=== PATIENT | male | born 1945 | race Two or more races ===

== ENCOUNTER 2024-01-08 18:12 | Inpatient (IN) | payer OTHER ==
[2024-01-08 18:34] VITALS: RESP 18; BMI 20.5
[2024-01-08 20:40] LABS: BASO % 0.8 % (0-2.0); EOS % 2.9 % (0-4.5); HEMATOCRIT 36.3 % (35.4-49); HEMOGLOBIN 12.3 GM/dL (11.7-16.9); MCH 30.8 pg (25.7-33.7); MCHC 33.8 g/dl (32.0-35.9); MEAN CELL VOLUME 91.1 fl (80-96); MEAN PLT VOLUME 8.7 fl (7.5-11.1); MONO % 9.2 % (3.8-10.2); NEUT % 73.1 % (42.8-82.8); PLATELET COUNT 333 10^3/uL (134-434); RBC 3.98 M/mm3 (4.00-5.60); RDW 16.4 % (11.9-15.9); WHITE BLOOD COUNT 7.7 K/mm3 (4.0-10.0)
[2024-01-08 20:52] LABS: INR 0.98 (0.83-1.09); PROTHROMBIN TIME (PATIENT) 11.3 SEC (9.7-13.0)
[2024-01-08 20:55] LABS: ACTIVATED PTT 30.9 SECONDS (25.2-36.5)
[2024-01-08 21:08] LABS: POTASSIUM 5.5 mmol/L (3.5-5.1)
[2024-01-08 21:09] LABS: CALCIUM 9.5 mg/dL (8.5-10.1)
[2024-01-08 21:10] LABS: BLOOD UREA NITROGEN 34.9 mg/dL (7-18)
[2024-01-08 21:13] LABS: CREATININE 1.8 mg/dL (0.55-1.3)
[2024-01-08 21:15] LABS: BILIRUBIN,TOTAL 0.4 mg/dL (0.2-1); TOT PROT 7.6 g/dl (6.4-8.2)
[2024-01-08 23:35] LABS: POTASSIUM 4.6 mmol/L (3.5-5.1)
[2024-01-08 23:37] LABS: ALBUMIN 3.8 g/dl (3.4-5.0); BLOOD UREA NITROGEN 33.6 mg/dL (7-18); CALCIUM 9.4 mg/dL (8.5-10.1)
[2024-01-08 23:41] LABS: CREATININE 1.9 mg/dL (0.55-1.3)
[2024-01-08 23:42] LABS: BILIRUBIN,TOTAL 0.3 mg/dL (0.2-1)
[2024-01-09] MEDS: SODIUM CHLORIDE 1,000 ML IV STA (00:14)
[2024-01-09] MEDS: MELATONIN 5 MG TABLETS PO ONE (04:00)
[2024-01-09 04:35] VITALS: TEMP 98.4
[2024-01-09 06:57] LABS: HEMATOCRIT 35.3 % (35.4-49); HEMOGLOBIN 11.5 GM/dL (11.7-16.9); MCH 29.8 pg (25.7-33.7); MCHC 32.7 g/dl (32.0-35.9); MEAN CELL VOLUME 91.4 fl (80-96); MEAN PLT VOLUME 9.7 fl (7.5-11.1); PLATELET COUNT 292 10^3/uL (134-434); RBC 3.87 M/mm3 (4.00-5.60); RDW 16.4 % (11.9-15.9); WHITE BLOOD COUNT 7.7 K/mm3 (4.0-10.0)
[2024-01-09 07:09] LABS: POTASSIUM 4.2 mmol/L (3.5-5.1)
[2024-01-09 07:16] LABS: ALBUMIN 3.7 g/dl (3.4-5.0); BLOOD UREA NITROGEN 26.2 mg/dL (7-18); MAGNESIUM 2.3 mg/dL (1.8-2.4)
[2024-01-09 07:18] LABS: CREATININE 1.5 mg/dL (0.55-1.3)
[2024-01-09 07:19] LABS: BILIRUBIN,TOTAL 0.1 mg/dL (0.2-1); PHOSPHOROUS 3.6 mg/dL (2.5-4.9); TOT PROT 6.9 g/dl (6.4-8.2)
[2024-01-09] MEDS: amLODIPine BESYLATE 2.5 MG TABLET (FP) PO SCH (11:54)
[2024-01-09 13:04] VITALS: BP 135/78; PULSE 70
== END 2024-01-09 13:47 | disposition home or self-care (01) | DRG 204 ==
LOC: JER 18:12 → JERBED 22:01 → OBSVTOIN 01-09 02:20 → J4W 01-09 04:37
PROVIDERS: ADMIT Internal Medicine; ATTEND Internal Medicine
DX: R55 Syncope and collapse (principal); C78.00 Secondary malignant neoplasm of unspecified lung; I10 Essential (primary) hypertension; E11.9 Type 2 diabetes mellitus without complications; C67.9 Malignant neoplasm of bladder, unspecified
CPT/HCPCS: 0241U-QW; 36415; 70450-TC; 71046-TC-FY; 71250-TC; 80053; 80061; 83036; 83735; 84100; 84436; 84443; 84484; 85025; 85027; 85610; 85730; 93005; 93010; 93306-TC; 93880-TC; 97116-GP; 97161-GP; 99285-25; G0378